=== PATIENT | female | born 1960 | race African-American/Black ===

== ENCOUNTER 2017-03-22 00:28 | Emergency (ER) | payer OTHER ==
[~2017-03-22] VITALS: Ht 160 cm; Wt 91.6 kg
[~2017-03-22 00:28] MED LIST: ALBU2.5V38 IH; BUSP5TAB PO; DULO20CA PO; LORA0.5T PO; PAIN; ZOLP5TAB2 PO
--- NOTE | 2017-03-22 01:03 | NUR ---
PT PRESENTED TO THE ER WITH A C/O COUGH AND CONGESTION . PT IS C/O NON SPECIFIC CP AND DIZZINESS. PT APPEARS TO BE C/O MORE FLU LIKE SYMPTOMS. PT AMBULATED TO BED #6 WITH A STEADY GAIT. DR. SWANSON IS AT THE BEDSIDE.
--- NOTE | 2017-03-22 01:24 | NUR ---
PT IS ON A BREATHING TX.
[2017-03-22] MEDS ORDERED: ALBUTEROL FS 2.5 MG/0.5 ML VIAL.NEB NEB ONE (01:30)
--- NOTE | 2017-03-22 01:43 | NUR ---
PT APPEARS TO BE RESTING COMFORTABLY WITH NO S/S OF PAIN OR DISTRESS.
--- NOTE | 2017-03-22 02:07 | NUR ---
Patient discharged to home in stable condition. Written and verbal after care instructions given. Patient verbalizes understanding of instruction AND RX. PT AMBULATED OUT WITH A STEADY GAIT. VSS.
[2017-03-22 02:18] VITALS: BP 119/82
== END 2017-03-22 02:18 | disposition home or self-care (01) ==
LOC: ER 00:32
DX: J98.01 Acute bronchospasm (principal); F41.9 Anxiety disorder, unspecified; J45.909 Unspecified asthma, uncomplicated; Z90.710 Acquired absence of both cervix and uterus
CPT/HCPCS: 71010-TC; A4606; Z7610

== ENCOUNTER 2017-04-03 12:29 | Emergency (ER) | payer OTHER ==
[~2017-04-03] VITALS: Ht 160 cm; Wt 91.6 kg
[2017-04-03] MEDS ORDERED: HYDROCODONE/APAP 10/325MG 1 EA TABLET PO ONE (14:00)
[2017-04-03] MEDS ORDERED: HYDROCODONE/APAP 10/325MG 1 EA TABLET ONE (14:30)
[2017-04-03 15:20] VITALS: BP 126/68
== END 2017-04-03 15:40 | disposition home or self-care (01) ==
LOC: ER 12:34
DX: S93.401A Sprain of unspecified ligament of right ankle, initial encounter (principal); S93.402A Sprain of unspecified ligament of left ankle, initial encounter; S40.011A Contusion of right shoulder, initial encounter; J45.909 Unspecified asthma, uncomplicated; F41.9 Anxiety disorder, unspecified; R51 Headache; Z98.890 Other specified postprocedural states; W18.30XA Fall on same level, unspecified, initial encounter; Y93.89 Activity, other specified; Y92.89 Other specified places as the place of occurrence of the external cause; Y99.8 Other external cause status
CPT/HCPCS: 72040; 73030; 73610 ×2; 73630 ×2; 99284; A4606; Z7610

== ENCOUNTER 2018-01-22 11:15 | Emergency (ER) | payer OTHER ==
[~2018-01-22] VITALS: Ht 160 cm; Wt 81.6 kg
--- NOTE | 2018-01-22 11:20 | NUR ---
AAOX3, CAME TO ER C/O EPIGASTRIC PAIN SINCE 1030PM LAST NIGHT. RR IS EVEN AND UNLABORED WITH NAD NOTED. SKIN IS WARM AND DRY. PLACED ON THE MONITOR. AWAITING MD FOR EVAL.
[2018-01-22] MEDS ORDERED: ONDANSETRON HCL/PF 4 MG/2 ML VIAL IVP ONE (11:30)
[2018-01-22] MEDS ORDERED: PANTOPRAZOLE 40 MG VIAL IV ONE (11:30)
[2018-01-22] MEDS ORDERED: PANTOPRAZOLE 40 MG VIAL ONE (11:50)
[2018-01-22] MEDS ORDERED: ONDANSETRON HCL/PF 4 MG/2 ML VIAL ONE (11:50)
[2018-01-22 11:56] LABS: BASOPHILS % (AUTO) 1.1 % (0.0-2.0); EOSINOPHILS % (AUTO) 0.6 % (0.0-6.0); HEMATOCRIT 44 % (33-45); HEMOGLOBIN 14.9 g/dL (11.5-14.8); LYMPHOCYTES % (AUTO) 49.1 % (20.0-44.0); MEAN CORPUSCULAR HEMOGLOBIN 27 PG (26.0-33.0); MEAN CORPUSCULAR HGB CONC 34 g/dl (31.0-36.0); MEAN CORPUSCULAR VOLUME 81 fL (82-100); MONOCYTES # (AUTO) 0.1 /CMM (0.1-1.30); MONOCYTES % (AUTO) 3.2 % (2.0-12.0); NEUTROPHILS # (AUTO) 1.8 /CMM (1.8-8.9); PLATELET COUNT (AUTO) 181 /CMM (150-450); RDW COEFFICIENT OF VARIATION 13.6 (11.5-15.0); RED BLOOD CELL COUNT(AUTO) 5.45 MIL/uL (4.0-5.2); WHITE BLOOD COUNT (AUTO) 3.9 K/uL (4.3-11.0)
[2018-01-22 12:14] LABS: TROPONIN I < 0.017 ng/mL (0.00-0.056)
[2018-01-22 12:16] LABS: ALANINE AMINOTRANSFERASE 23 U/L (12-78); ALBUMIN 3.5 g/dL (3.4-5.0); ALKALINE PHOSPHATASE 105 U/L (46-116); ASPARTATE AMINOTRANSFERASE 21 U/L (15-37); BILIRUBIN,DIRECT 0.1 mg/dL (0.0-0.2); BILIRUBIN,TOTAL 0.4 mg/dL (0.2-1.0); CALCIUM, SERUM 9.6 mg/dL (8.5-10.1); CARBON DIOXIDE 25 mmol/L (21-32); CHLORIDE 104 mmol/L (98-107); GLUCOSE 94 mg/dL (74-106); LIPASE 102 U/L (73-393); POTASSIUM 4.1 mmol/L (3.5-5.1); SODIUM SERUM 140 mmol/L (136-145); TOTAL PROTEIN, SERUM 7.6 g/dL (6.4-8.2); UREA NITROGEN, BLOOD 20 mg/dL (7-18)
--- NOTE | 2018-01-22 13:06 | NUR ---
IV removed. Catheter intact and site benign. Pressure and 4x4 applied to site. No bleeding noted.Patient discharged to home in stable condition. Written and verbal after care instructions given. Patient verbalizes understanding of instruction.
[2018-01-22 13:15] VITALS: BP 128/67
== END 2018-01-22 13:16 | disposition home or self-care (01) ==
LOC: ER 11:16
DX: K80.50 Calculus of bile duct without cholangitis or cholecystitis without obstruction (principal); J45.909 Unspecified asthma, uncomplicated; F41.9 Anxiety disorder, unspecified; Z98.890 Other specified postprocedural states; Z90.710 Acquired absence of both cervix and uterus
CPT/HCPCS: 36415; 71045-TC; 76705-TC; 80048-TC; 80076-TC; 83690-TC; 84484-TC; 85025-TC; A4606; C9113; J2405; Z7610

== ENCOUNTER 2018-08-18 15:56 | Emergency (ER) | payer OTHER ==
[~2018-08-18] VITALS: Ht 165.1 cm; Wt 68.0 kg
[2018-08-18] MEDS ORDERED: IBUPROFEN 400 MG TABLET PO ONE (16:30)
[2018-08-18] MEDS ORDERED: CYCLOBENZAPRINE 10 MG TABLET PO ONE (16:30)
[2018-08-18] MEDS ORDERED: IBUPROFEN 400 MG TABLET ONE (16:34)
[2018-08-18] MEDS ORDERED: CYCLOBENZAPRINE 10 MG TABLET ONE (16:34)
--- NOTE | 2018-08-18 16:52 | NUR ---
PATIENT TO ED DT NECK AND RIGHT AND RIGHT SHOULDER PAIN, PATIENT IS AWAKE AND ALERT. NOT IN DISTRESS. SKIN IS WARM TO TOUCH AND NON DIAPHORETIC. PT IS AFEBRILE. VSS
[2018-08-18 16:58] LABS: INR 0.95 (0.85-1.15)
[2018-08-18 16:59] LABS: BASOPHILS % (AUTO) 0.6 % (0.0-2.0); EOSINOPHILS % (AUTO) 0.6 % (0.0-6.0); HEMATOCRIT 46 % (33-45); LYMPHOCYTES # (AUTO) 2.5 /CMM (0.8-4.8); LYMPHOCYTES % (AUTO) 46.9 % (20.0-44.0); MEAN CORPUSCULAR HGB CONC 33 g/dl (31.0-36.0); MEAN CORPUSCULAR VOLUME 83 fL (82-100); MONOCYTES # (AUTO) 0.3 /CMM (0.1-1.30); MONOCYTES % (AUTO) 5.3 % (2.0-12.0); NEUTROPHILS # (AUTO) 2.4 /CMM (1.8-8.9); NEUTROPHILS % (AUTO) 46.6 % (43.0-81.0); PLATELET COUNT (AUTO) 101 /CMM (150-450); RDW COEFFICIENT OF VARIATION 13.6 (11.5-15.0); WHITE BLOOD COUNT (AUTO) 5.2 K/uL (4.3-11.0)
[2018-08-18 17:04] LABS: CALCIUM, SERUM 8.8 mg/dL (8.5-10.1); CARBON DIOXIDE 23 mmol/L (21-32); CHLORIDE 107 mmol/L (98-107); CREATININE 0.9 mg/dL (0.6-1.3); GLUCOSE 111 mg/dL (74-106); POTASSIUM 3.8 mmol/L (3.5-5.1); SODIUM SERUM 136 mmol/L (136-145); UREA NITROGEN, BLOOD 19 mg/dL (7-18)
[2018-08-18 17:10] LABS: ALANINE AMINOTRANSFERASE 21 U/L (12-78); ALBUMIN 3.3 g/dL (3.4-5.0); ALKALINE PHOSPHATASE 114 U/L (46-116); ASPARTATE AMINOTRANSFERASE 22 U/L (15-37); BILIRUBIN,DIRECT 0.1 mg/dL (0.0-0.2); BILIRUBIN,TOTAL 0.3 mg/dL (0.2-1.0); TOTAL PROTEIN, SERUM 6.9 g/dL (6.4-8.2)
[2018-08-18] MEDS ORDERED: ONDANSETRON 4 MG TAB.RAPDIS PO ONE (17:30)
[2018-08-18] MEDS ORDERED: IV NS 0.9% 1,000 ML BAG IV ONE (17:30)
[2018-08-18] MEDS ORDERED: ONDANSETRON 4 MG TAB.RAPDIS ONE (17:35)
[2018-08-18 17:56] LABS: TROPONIN I < 0.017 ng/mL (0.00-0.056)
[2018-08-18 18:31] LABS: BAND % (MANUAL) 1 % (0.0-5.0); BASOPHILS % (MANUAL) 0 % (0.0-2.0); EOSINOPHILS % (MANUAL) 0 % (0-4); LYMPHOCYTES % (MANUAL) 52 % (16-48); MONOCYTES % (MANUAL) 2 % (0-11.0); NEUTROPHILS % (MANUAL) 45 (42-76)
--- NOTE | 2018-08-18 19:11 | NUR ---
Assumed care of patient at this time. Patient discharged to home in stable condition. Written and verbal after care instructions given. Patient verbalizes understanding of instruction.IV removed. Catheter intact and site benign. Pressure and 4x4 applied to site. No bleeding noted.
[2018-08-18 19:13] VITALS: BP 134/77
== END 2018-08-18 19:16 | disposition home or self-care (01) ==
LOC: ER 16:01
DX: G43.909 Migraine, unspecified, not intractable, without status migrainosus (principal); R20.0 Anesthesia of skin; J45.909 Unspecified asthma, uncomplicated; F41.9 Anxiety disorder, unspecified; I49.8 Other specified cardiac arrhythmias; Z90.710 Acquired absence of both cervix and uterus; Z96.611 Presence of right artificial shoulder joint
CPT/HCPCS: 36415; 70450; 80048; 80076; 84484; 85025; 85730; 93005; 99285; A4606; J7030; Q0162; Z7610

== ENCOUNTER 2019-02-03 02:38 | Emergency (ER) | payer OTHER ==
[~2019-02-03] VITALS: Ht 160 cm; Wt 74.8 kg
--- NOTE | 2019-02-03 02:43 | NUR ---
PT BIBS FROM HOME FOR CHEST TIGHTNESS, SOB; PT AAOX4 ,PT ON MONITOR, VSS, NAD NOTED, PENDING MD SHEPHERD
[2019-02-03] MEDS ORDERED: ASPIRIN 81 MG TAB.CHEW ONE (02:53)
[2019-02-03] MEDS ORDERED: NITROGLYCERIN PACKET 1 GM PACKET ONE (02:53)
[2019-02-03] MEDS ORDERED: NITROGLYCERIN 0.4 MG/TAB BOTTLE ONE (02:53)
[2019-02-03] MEDS ORDERED: LORAZEPAM INJ 2 MG/ML VIAL ONE ×2 (02:54→05:44)
[2019-02-03] MEDS ORDERED: NITROGLYCERIN PACKET 1 GM PACKET TD ONE (03:00)
[2019-02-03] MEDS ORDERED: LORAZEPAM INJ 2 MG/ML VIAL IV ONE ×2 (03:00→06:00)
[2019-02-03] MEDS ORDERED: NITROGLYCERIN 0.4 MG/TAB BOTTLE SL ONE (03:00)
[2019-02-03] MEDS ORDERED: ASPIRIN 81 MG TAB.CHEW PO ONE (03:00)
[2019-02-03 03:09] LABS: BASOPHILS % (AUTO) 0.5 % (0.0-2.0); EOSINOPHILS % (AUTO) 0.6 % (0.0-6.0); HEMATOCRIT 44 % (33-45); HEMOGLOBIN 14.6 g/dL (11.5-14.8); LYMPHOCYTES # (AUTO) 3.2 /CMM (0.8-4.8); LYMPHOCYTES % (AUTO) 51.4 % (20.0-44.0); MEAN CORPUSCULAR HGB CONC 33 g/dl (31.0-36.0); MEAN CORPUSCULAR VOLUME 82 fL (82-100); MONOCYTES # (AUTO) 0.4 /CMM (0.1-1.30); MONOCYTES % (AUTO) 6.1 % (2.0-12.0); NEUTROPHILS # (AUTO) 2.6 /CMM (1.8-8.9); NEUTROPHILS % (AUTO) 41.4 % (43.0-81.0); PLATELET COUNT (AUTO) 257 /CMM (150-450); RED BLOOD CELL COUNT(AUTO) 5.39 MIL/uL (4.0-5.2); WHITE BLOOD COUNT (AUTO) 6.3 K/uL (4.3-11.0)
[2019-02-03 03:21] LABS: CALCIUM, SERUM 9.7 mg/dL (8.5-10.1); CARBON DIOXIDE 26 mmol/L (21-32); CHLORIDE 103 mmol/L (98-107); CREATININE 1.2 mg/dL (0.6-1.3); GLUCOSE 107 mg/dL (74-106); POTASSIUM 3.5 mmol/L (3.5-5.1); SODIUM SERUM 140 mmol/L (136-145); UREA NITROGEN, BLOOD 22 mg/dL (7-18)
[2019-02-03 03:33] LABS: ALANINE AMINOTRANSFERASE 30 U/L (12-78); ALBUMIN 3.7 g/dL (3.4-5.0); ALKALINE PHOSPHATASE 104 U/L (46-116); ASPARTATE AMINOTRANSFERASE 20 U/L (15-37); B-TYPE NATRIURETIC PEPTIDE 96 PG/ML (0-125); BILIRUBIN,DIRECT 0.1 mg/dL (0.0-0.2); BILIRUBIN,TOTAL 0.3 mg/dL (0.2-1.0); TOTAL PROTEIN, SERUM 7.3 g/dL (6.4-8.2)
[2019-02-03] MEDS ORDERED: ONDANSETRON HCL/PF 4 MG/2 ML VIAL ONE (05:43)
--- NOTE | 2019-02-03 05:50 | NUR ---
D/C INSTRUCTIONS PREPARED BY DR. BACH. AWAITING 2ND TROPONIN LAB; PER DR. BACH, ONCE RESULT IS AVAILABLE, PT MAY D/C HOME
[2019-02-03] MEDS ORDERED: ONDANSETRON HCL/PF - ER 4 MG/2 ML VIAL IV ONE (06:00)
--- NOTE | 2019-02-03 06:45 | NUR ---
Patient discharged to home in stable condition. Written and verbal after care instructions given. Patient verbalizes understanding of instruction. IV removed. Catheter intact and site benign. Pressure and 4x4 applied to site. No bleeding noted.
[2019-02-03 06:46] VITALS: BP 125/68
== END 2019-02-03 06:47 | disposition home or self-care (01) ==
LOC: ER 02:39
DX: F41.9 Anxiety disorder, unspecified (principal); R07.89 Other chest pain; R20.2 Paresthesia of skin; R00.2 Palpitations; J45.909 Unspecified asthma, uncomplicated; R51 Headache; Z98.890 Other specified postprocedural states; Z90.710 Acquired absence of both cervix and uterus
CPT/HCPCS: 36415; 71045-TC; 80048-TC; 80076-TC; 83880; 84484-TC; 85025-TC; 85378-TC; J2060; J2405

== ENCOUNTER 2020-07-27 15:24 | Emergency (ER) | payer OTHER ==
[~2020-07-27] VITALS: Ht 160 cm; Wt 83.9 kg
[2020-07-27] MEDS ORDERED: TDAP [DIPH/PERTUSSIS/TET] 0.5 ML VIAL IM ONE ×2 (16:33→17:00)
--- NOTE | 2020-07-27 16:39 | NUR ---
SEEN AND EVALUATED BY DR BACH. LAC REPAIR DONE USING SKIN ADHESIVE. PROVIDED W/ WOUND CARE. PT DISCHARGE HOME IN STABLE CONDITION.
[2020-07-27 16:40] VITALS: BP 134/82
== END 2020-07-27 16:40 | disposition home or self-care (01) ==
LOC: ER 15:26
DX: S61.511A Laceration without foreign body of right wrist, initial encounter (principal); J45.909 Unspecified asthma, uncomplicated; R51 Headache; Z98.890 Other specified postprocedural states; Z90.710 Acquired absence of both cervix and uterus; Z60.2 Problems related to living alone; Z79.899 Other long term (current) drug therapy; W25.XXXA Contact with sharp glass, initial encounter; Y93.89 Activity, other specified; Y92.89 Other specified places as the place of occurrence of the external cause; Y99.8 Other external cause status
CPT/HCPCS: 90715

== ENCOUNTER 2020-07-27 19:11 | Emergency (ER) | payer OTHER ==
[~2020-07-27] VITALS: Ht 160 cm; Wt 83.9 kg
[2020-07-27 19:25] VITALS: BP 114/71
[2020-07-27] MEDS ORDERED: LIDOCAINE HCL/MPF 1% 30 ML VIAL IJ ONE (19:43)
[2020-07-27] MEDS: LIDOCAINE 1% INJ 50 ML MDV IJ ONE (19:44)
== END 2020-07-27 20:18 | disposition home or self-care (01) ==
LOC: ER 19:17
DX: S61.511A Laceration without foreign body of right wrist, initial encounter (principal); J45.909 Unspecified asthma, uncomplicated; R51 Headache; Z98.890 Other specified postprocedural states; Z90.710 Acquired absence of both cervix and uterus; Z60.2 Problems related to living alone; Z79.899 Other long term (current) drug therapy; W25.XXXA Contact with sharp glass, initial encounter; Y93.89 Activity, other specified; Y92.89 Other specified places as the place of occurrence of the external cause; Y99.8 Other external cause status
CPT/HCPCS: 12001; 99282; A6403; J3490

== ENCOUNTER 2022-06-04 03:23 | Emergency (ER) | payer OTHER ==
[~2022-06-04] VITALS: Ht 160 cm; Wt 92.1 kg
[2022-06-04 03:27] VITALS: BP 135/87
--- NOTE | 2022-06-04 03:27 | NUR ---
BIBS FOR C/O SUDDEN SEVERE L ARM PAIN. PT A/OX4. RESP EVEN AND NON LABORED ON R/A; TOLERATING WELL. CONNECTED PT TO POX AND MONITOR. SAFETY MEASURES IN PLACE.
[2022-06-04] MEDS ORDERED: HYDROCODONE/APAP 5/325MG TABLET PO ONE (03:30)
[2022-06-04] MEDS ORDERED: KETOROLAC TROMETHAMINE INJ 60 MG/2 ML VIAL IM ONE ×2 (03:30→03:40)
[2022-06-04] MEDS ORDERED: OXYC-128 PO (03:35)
[2022-06-04] MEDS ORDERED: HYDROCODONE/APAP 5/325MG TABLET ONE (03:40)
[2022-06-04] MEDS ORDERED: ONDANSETRON 4 MG TAB.RAPDIS ONE (03:44)
--- NOTE | 2022-06-04 03:52 | NUR ---
Patient discharged to home in stable condition. Written and verbal after care instructions given. Patient verbalizes understanding of instruction. Offered Pt Ice pack. PT ambulatory with a steady gait
[2022-06-04] MEDS ORDERED: ONDANSETRON 4 MG TAB.RAPDIS SL ONE (04:00)
== END 2022-06-04 03:54 | disposition home or self-care (01) ==
LOC: ER 03:25
DX: S46.912A Strain of unspecified muscle, fascia and tendon at shoulder and upper arm level, left arm, initial encounter (principal); J45.909 Unspecified asthma, uncomplicated; F41.9 Anxiety disorder, unspecified; Z98.890 Other specified postprocedural states; Z60.2 Problems related to living alone; Z79.899 Other long term (current) drug therapy; X50.0XXA Overexertion from strenuous movement or load, initial encounter; Y93.89 Activity, other specified; Y92.89 Other specified places as the place of occurrence of the external cause; Y99.8 Other external cause status
CPT/HCPCS: 96372; 99283; J1885; Q0162